=== PATIENT | male | born 1990 | race Caucasian/White ===

== ENCOUNTER 2022-01-30 03:25 | Emergency (ER) | payer MEDICARE, MEDICAID ==
[~2022-01-30] VITALS: Ht 180 cm; Wt 82.5 kg
[2022-01-30] MEDS ORDERED: fentaNYL INJ 100 MCG/2 ML AMP IVP ONE (04:30)
[2022-01-30] MEDS ORDERED: PANTOPRAZOLE 40 MG (PROTONIX) VIAL IV ONE (04:30)
[2022-01-30] MEDS ORDERED: ONDANSETRON 4 MG/2 ML (SDV) Z0FRAN IVP ONE (04:30)
[2022-01-30] MEDS ORDERED: LACTATED RINGERS 1,000 ML IV ONE (04:30)
[2022-01-30 04:35] LABS: BASOPHILS % (AUTO) 0 % (0-10); EOSINOPHILS # (AUTO) 0.1 10^3/uL (0.0-0.3); EOSINOPHILS % (AUTO) 1 % (0-10); HEMATOCRIT 47 % (40-54); HEMOGLOBIN 16.2 g/dL (13.3-17.7); LYMPHOCYTES # (AUTO) 1.6 10^3/uL (1.0-4.0); LYMPHOCYTES % (AUTO) 16 % (12-44); MEAN CORPUSCULAR HEMOGLOBIN 32 pg (25-34); MEAN CORPUSCULAR HGB CONC 34 g/dL (32-36); MEAN CORPUSCULAR VOLUME 93 fL (80-99); MEAN PLATELET VOLUME 9.5 fL (9.0-12.2); MONOCYTES # (AUTO) 0.6 10^3/uL (0.0-1.0); MONOCYTES % (AUTO) 6 % (0-12); NEUTROPHILS # (AUTO) 7.6 10^3/uL (1.8-7.8); NEUTROPHILS % (AUTO) 76 % (42-75); PLATELET COUNT 347 10^3/uL (130-400)
--- NOTE | 2022-01-30 04:37 | ED Abdominal Pain ---
General Chief Complaint: Abdominal/GI Problems Stated Complaint: VOMITING,SORE THROAT Nursing Triage Note: CAME IN WITH C/O VOMITTING X4 SINCE 2PM 01/29/22. VOMITT REPORTED TO BE DARK BROWN IN COLOR. FEELS CONSITPATED. TOLD TO HAVE GALLBLADDER ISSUES IN 2019. FELL 4FT LAST WEEK WITH RIGHT RIB PAIN. Source of Information: Patient Exam Limitations: No Limitations History of Present Illness Date Seen by Provider: Jan 30, 2022 Time Seen by Provider: 04:17 Initial Comments Patient to the ER by private conveyance from home with chief complaint since about 2 PM yesterday has had 4-5 episodes of vomiting brown in color no blood in it. He had a small bowel movement yesterday. He has had known gallbladder issues for the past couple years but never followed up with anybody. This was diagnosed at [facility]. He had a fall 2 weeks ago from 4 feet and landed on his right side with a little bruising that is gone since then. He does most of his pain is concentrated in his epigastric region by pointing there. It does not radiate. It is burning. It preceded the vomiting. He now has a sore throat because of the vomiting. Last oral intake was some Dr. Mendez on his way to the ER to try and wash the taste out of his mouth. He has not taken anything else for his symptoms. He does drink 5-6 shots of hard liquor a week on average but denies a history of gastritis, pancreatitis. No history of EGD or colonoscopy. No history of abdominal surgeries. No significant family history. Allergies and Home Medications Allergies Coded Allergies: olanzapine (Unverified Allergy, Unknown, 01/30/22) Patient Home Medication List Home Medication List Reviewed: Yes Hydrocodone/Acetaminophen (Hydrocodone-Acetamin 5-325 mg) 5 Mg-325 Mg Tablet, 1 TAB PO Q6H PRN for PAIN-MODERATE (5-7) Prescribed by: KAYLA ESPINOSA on 01/30/22 9715 Ondansetron (Ondansetron Odt) 4 Mg Tab.rapdis, 4 MG PO Q6H PRN for NAUSEA/VOMITING Prescribed by: KAYLA ESPINOSA on 01/30/22 9826 Review of Systems Review of Systems Constitutional: No chills, No diaphoresis EENTM: No Blurred Vision, No Double Vision Respiratory: Denies Cough, Denies Orthopnea Cardiovascular: Denies Chest Pain, Denies Lightheadedness Gastrointestinal: Abdominal Pain, Constipated; Denies Diarrhea; Nausea, Poor Fluid Intake, Vomiting Genitourinary: Denies Burning, Denies Discharge Musculoskeletal: No back pain, No joint pain Skin: No pruritus, No rash Psychiatric/Neurological: Denies Headache, Denies Numbness All Other Systems Reviewed Negative Unless Noted: Yes Past Phlcyzp-Ztkijl-Gagwtl Hx Patient Social History Tobacco Use?: No Use of E-Cig and/or Vaping dev: No Substance use?: No Physical Exam Vital Signs Vital Signs - First Documented 01/30/22 04:18 Temp 36.0 Pulse 61 Resp 18 B/P (MAP) 135/88 (104) Pulse Ox 97 O2 Delivery Room Air Capillary Refill : Less Than 3 Seconds Height/Weight/BMI Height: '" Weight: lbs. oz. kg; 25.00 BMI Method: General Appearance: WD/WN, mild distress HEENT: PERRL/EOMI, normal ENT inspection, pharynx normal Neck: full range of motion, supple, normal inspection Respiratory: lungs clear, normal breath sounds, no respiratory distress, no accessory muscle use Cardiovascular: normal peripheral pulses, regular rate, rhythm, no edema Peripheral Pulses: 2+ Radial Pulses (R), 2+ Radial Pulses (L) Gastrointestinal: normal bowel sounds, soft, tenderness (Epigastric and right upper quadrant tenderness without Valdes sign), other (Negative Rovsing sign, McBurney's point tenderness or rebound tenderness. No mesenteric signs) Extremities: normal range of motion, non-tender, normal capillary refill Neurologic/Psychiatric: alert, normal mood/affect Skin: normal color, warm/dry Progress/Results/Core Measures Results/Orders Lab Results Laboratory Tests Test 01/30/22 04:06 01/30/22 04:10 Range/Units Influenza Type A (RT-PCR) Not Detected Not Detecte Influenza Type B (RT-PCR) Not Detected Not Detecte SARS-CoV-2 RNA (RT-PCR) Not Detected Not Detecte White Blood Count 10.0 4.3-11.0 10^3/uL Red Blood Count 5.09 4.30-5.52 10^6/uL Hemoglobin 16.2 13.3-17.7 g/dL Hematocrit 47 40-54 % Mean Corpuscular Volume 93 80-99 fL Mean Corpuscular Hemoglobin 32 25-34 pg Mean Corpuscular Hemoglobin Concent 34 32-36 g/dL Red Cell Distribution Width 13.4 10.0-14.5 % Platelet Count 347 130-400 10^3/uL Mean Platelet Volume 9.5 9.0-12.2 fL Immature Granulocyte % (Auto) 0 % Neutrophils (%) (Auto) 76 H 42-75 % Lymphocytes (%) (Auto) 16 12-44 % Monocytes (%) (Auto) 6 0-12 % Eosinophils (%) (Auto) 1 0-10 % Basophils (%) (Auto) 0 0-10 % Neutrophils # (Auto) 7.6 1.8-7.8 10^3/uL Lymphocytes # (Auto) 1.6 1.0-4.0 10^3/uL Monocytes # (Auto) 0.6 0.0-1.0 10^3/uL Eosinophils # (Auto) 0.1 0.0-0.3 10^3/uL Basophils # (Auto) 0.0 0.0-0.1 10^3/uL Immature Granulocyte # (Auto) 0.0 0.0-0.1 10^3/uL Sodium Level 140 135-145 MMOL/L Potassium Level 3.8 3.6-5.0 MMOL/L Chloride Level 102 98-107 MMOL/L Carbon Dioxide Level 26 21-32 MMOL/L Anion Gap 12 5-14 MMOL/L Blood Urea Nitrogen 15 7-18 MG/DL Creatinine 0.81 0.60-1.30 MG/DL Estimat Glomerular Filtration Rate 122 BUN/Creatinine Ratio 19 Glucose Level 131 H 70-105 MG/DL Calcium Level 9.4 8.5-10.1 MG/DL Corrected Calcium 9.0 8.5-10.1 MG/DL Total Bilirubin 1.1 H 0.1-1.0 MG/DL Aspartate Amino Transf (AST/SGOT) 27 5-34 U/L Alanine Aminotransferase (ALT/SGPT) 30 0-55 U/L Alkaline Phosphatase 76 40-136 U/L C-Reactive Protein High Sensitivity 0.53 H 0.00-0.50 MG/DL Total Protein 7.6 6.4-8.2 GM/DL Albumin 4.5 3.2-4.5 GM/DL Lipase 11 8-78 U/L Serum Alcohol < 10 <10 MG/DL My Orders Orders - KAYLA ESPINOSA Covid 19 Inhouse Test (01/30/22 03:27) Influenza A And B By Pcr (01/30/22 03:27) Cbc With Automated Diff (01/30/22 04:30) Comprehensive Metabolic Panel (01/30/22 04:30) Hs C Reactive Protein (01/30/22 04:30) Lipase (01/30/22 04:30) Alcohol (01/30/22 04:30) Pantoprazole Injection (Protonix Injecti (01/30/22 04:30) Ondansetron Injection (Zofran Injectio (01/30/22 04:30) Fentanyl Inj (Sublimaze Injection) (01/30/22 04:30) Ed Iv/Invasive Line Start (01/30/22 04:30) Lactated Ringers (Lr 1000 Ml Iv Solution (01/30/22 04:30) Medications Given in ED Current Medications Medications Dose Ordered Sig/Wes Route Start Time Stop Time Status Last Admin Dose Admin Fentanyl Citrate 50 mcg ONCE ONCE IVP 01/30/22 04:30 01/30/22 04:32 DC 01/30/22 05:08 50 MCG Lactated Ringer's 1,000 ml @ 0 mls/hr Q0M ONCE IV 01/30/22 04:30 01/30/22 04:32 DC 01/30/22 05:07 1,000 MLS/HR Ondansetron HCl 8 mg ONCE ONCE IVP 01/30/22 04:30 01/30/22 04:32 DC 01/30/22 05:08 8 MG Pantoprazole 40 mg ONCE ONCE IV 01/30/22 04:30 01/30/22 04:32 DC 01/30/22 05:07 40 MG Vital Signs/I&O 01/30/22 04:18 Temp 36.0 Pulse 61 Resp 18 B/P (MAP) 135/88 (104) Pulse Ox 97 O2 Delivery Room Air Blood Pressure Mean: 104 Progress Progress Note #1: Time: 04:38 Progress Note 50 mcg of fentanyl for pain. A liter of fluids, Protonix 40 mg. We will check some labs including a lipase, CMP etc. he has not had any urinary symptoms. Progress Note #2: Time: 05:38 Progress Note The patient was asleep when we returned to the room. He was easily arousable and states that his pain and nausea is gone. He would like to have a work-up done on his gallbladder. An ultrasound to be the next reasonable step. Ultrasounds not available at this time. He has a soft nonsurgical abdomen with good bowel sounds. His symptoms are under control. His labs and vital signs are all unremarkable except for a marginal elevation of his bilirubin of uncertain clinical significance. Will refer him onto Dr. CHAVEZ, general surgery for further outpatient work-up. We will set him up with an outpatient ultrasound of the gallbladder that he can complete later today. Patient is okay with this plan. Departure Impression Primary Impression: Biliary colic Disposition: HOME, SELF-CARE Condition: Stable Departure-Patient Inst. Decision time for Depature: 05:41 Referrals: SAMEER CHAVEZ MD,LOCAL PHYSICIAN (PCP) Primary Care Physician Patient Instructions: Gallstones ED Add. Discharge Instructions: The next step in your work-up would be an ultrasound of your gallbladder to see if there are any signs of inflammation or stones. You can call the ER and [facility] or the hospital here to have this scheduled at your convenience. The results will be forwarded on to Dr. CHAVEZ, general surgery. Call Dr. CHAVEZ for a follow-up appointment to discuss the results and what the next step is. If you are having pain you can use Tylenol 1000 mg every 8 hours and/or ibuprofen 800 mg every 8 hours. You may also use Tums, Maalox, Mylanta etc. Finally if you are still having severe pain you should use hydrocodone 1 tablet every 6 hours. Hydrocodone will contribute to constipation. I suggest MiraLAX to stay regular. If you are having nausea or vomiting then take 1 or 2 tablets of Zofran every 6 hours as needed. Return to the nearest ER for further evaluation and management if you have intractable pain, nausea or other worrisome symptoms. All discharge instructions reviewed with patient and/or family. Voiced understanding. Scripts Ondansetron (Ondansetron Odt) 4 Mg Tab.rapdis 4 MG PO Q6H PRN for NAUSEA/VOMITING, #15 TAB 0 Refills Prov: KAYLA ESPINOSA 01/30/22 Hydrocodone/Acetaminophen (Hydrocodone-Acetamin 5-325 mg) 5 Mg-325 Mg Tablet 1 TAB PO Q6H PRN for PAIN-MODERATE (5-7), #10 TAB 0 Refills Prov: KAYLA ESPINOSA 01/30/22 Work/School Note: Work Release Form Date Seen in the Emergency Department: Jan 30, 2022 Return to Work: Jan 31, 2022 Restrictions: No Restrictions Copy Copies To 1: SAMEER CHAVEZ MD, TITUS J Jan 30, 2022 04:37
[2022-01-30 04:40] LABS: ALBUMIN 4.5 GM/DL (3.2-4.5); CHLORIDE 102 MMOL/L (98-107); POTASSIUM 3.8 MMOL/L (3.6-5.0); SODIUM 140 MMOL/L (135-145)
[2022-01-30 04:41] LABS: CALCIUM 9.4 MG/DL (8.5-10.1)
[2022-01-30 04:43] LABS: GLUCOSE 131 MG/DL (70-105); TOTAL PROTEIN 7.6 GM/DL (6.4-8.2)
[2022-01-30 04:44] LABS: BILIRUBIN,TOTAL 1.1 MG/DL (0.1-1.0); CARBON DIOXIDE 26 MMOL/L (21-32)
[2022-01-30 04:46] LABS: ALKALINE PHOSPHATASE 76 U/L (40-136); CREATININE SERUM 0.81 MG/DL (0.60-1.30); GFR ESTIMATED 122
[2022-01-30 04:47] LABS: BUN/CREATININE RATIO 19
[2022-01-30 04:49] LABS: ALANINE AMINOTRANSFERASE 30 U/L (0-55)
[2022-01-30 04:50] LABS: LIPASE 11 U/L (8-78)
[2022-01-30] MEDS ORDERED: ONDA4TAB11 PO ×2 (05:47→06:12)
[2022-01-30] MEDS ORDERED: ACHD5005 PO ×2 (05:47→06:12)
[2022-01-30 06:15] VITALS: BP 125/74
== END 2022-01-30 06:15 | disposition home or self-care (01) ==
LOC: ER 03:30
DX: K80.50 Calculus of bile duct without cholangitis or cholecystitis without obstruction (principal); Z20.822 Contact with and (suspected) exposure to COVID-19
CPT/HCPCS: 80053; 83690; 85025; 86141; 87636; 96374; 96375; 99284; G0480; 36415; 80320

== ENCOUNTER 2022-04-02 23:11 | Emergency (ER) | payer MEDICARE, MEDICAID ==
[~2022-04-02 23:11] MED LIST: ACHD5005 PO; ONDA4TAB11 PO
== END 2022-04-02 23:27 | disposition left against medical advice (07) ==
LOC: EDUNIT# 23:11 → ER 23:15
DX: M25.562 Pain in left knee (principal); W19.XXXA Unspecified fall, initial encounter